=== PATIENT | male | born 1970 | race Two or more races ===

== ENCOUNTER 2017-06-22 16:22 | Inpatient (IN) | payer OTHER ==
[~2017-06-22] VITALS: Ht 175.3 cm; Wt 97.5 kg
[~2017-06-22 16:22] MED LIST: CEPH500 PO; TRAM50 PO
[2017-06-22] MEDS ORDERED: MONT10T (16:49)
[2017-06-22] MEDS ORDERED: HYDR1TAB94 (16:50)
[2017-06-22] MEDS ORDERED: Ventolin/Prove6.7 GM (16:50)
[2017-06-22] MEDS ORDERED: Advair Hfa 230-12 GM (16:50)
[2017-06-22 17:17] LABS: BASOPHILS ABSOLUTE AUTO 0.06 K/mm3 (0.00-0.23); BASOPHILS PERCENT AUTO 1 % (0-2); EOSINOPHILS ABSOLUTE AUTO 0.14 K/mm3 (0.00-0.68); EOSINOPHILS PERCENT AUTO 2 % (0-6); Hematocrit 49.4 % (37.0-53.0); Hemoglobin 16.7 g/dL (13.5-17.5); IMMATURE GRAN ABSOLUTE AUTO 0.02 K/mm3 (0.00-0.10); IMMATURE GRAN PERCENT AUTO 0 % (0-1); LYMPHOCYTES ABSOLUTE AUTO 1.32 K/mm3 (0.84-5.20); LYMPHOCYTES PERCENT AUTO 21 % (21-46); MONOCYTES ABSOLUTE AUTO 0.52 K/mm3 (0.16-1.47); MONOCYTES PERCENT AUTO 8 % (4-13); Mean Corpuscular HGB 30.4 pg (26.0-34.0); Mean Corpuscular HGB Conc 33.8 g/dL (31.5-36.5); Mean Corpuscular Volume 90 fL (80-100); Mean Platelet Volume 9.9 fL (9.1-12.4); NEUTROPHILS ABSOLUTE AUTO 4.32 K/mm3 (1.96-9.15); NEUTROPHILS PERCENT AUTO 68 % (41-73); Platelet Count 227 K/mm3 (150-400); RDW Coefficient Variation 12.5 % (11.7-14.2); RDW Standard Deviation 41.3 fL (35.1-46.3); White Blood Cell Count 6.38 K/mm3 (4.00-11.30)
[2017-06-22 17:34] LABS: Alanine Aminotransfer (ALT/SGP 56 U/L (12-78); Albumin/Globulin Ratio 0.9 (0.8-1.8); Alk Phos 196 U/L (50-136); Anion Gap 6 mmol/L (6-16); Aspartate Aminotrans (AST/SGOT 35 U/L (12-37); Bilirubin, Total 0.5 mg/dL (0.1-1.0); Blood Urea Nitrogen 12 mg/dL (8-24); Bun/Creatinine Ratio 20.9 (12.0-20.0); CO2, Blood 30 mmol/L (21-32); Calcium, Blood 9.2 mg/dL (8.5-10.1); Chloride, Blood 104 mmol/L (98-108); Creatinine, Blood 0.58 mg/dL (0.60-1.20); Globulin, Blood 4.4 g/dL (2.2-4.0); Glomerular Filtration Rate >60 (60-); Glucose, Blood 104 mg/dL (70-99); Potassium, Blood 4.4 mmol/L (3.5-5.5); Sodium, Blood 140 mmol/L (136-145); Total Protein, Blood 8.4 g/dL (6.4-8.2)
[2017-06-22 21:10] LABS: Bilirubin, Urine Neg (Neg); Blood, Urine Neg (Neg); Glucose Qualitative, Urine Neg (Neg); Ketones, Urine Neg (Neg); Leukocyte Esterase, Urine Neg (Neg); Nitrite, Urine Neg (Neg); Protein, Urine Neg (Neg); Urobilinogen, Urine NORM (Normal)
[2017-06-22 21:19] LABS: Appearance, Urine Clear (Clear); Color, Urine Yellow (P-Yellow)
== END 2017-06-23 00:45 | disposition home or self-care (01) | DRG 355 ==
LOC: ER 16:22 → SURS 20:34
PROVIDERS: Emergency Medicine; Surgery
PROC: 0WUF0JZ Supplement Abdominal Wall with Synthetic Substitute, Open Approach (ICD-10-PCS; principal; 2017-06-22 13:00)
DX: K42.0 Umbilical hernia with obstruction, without gangrene (principal); J45.909 Unspecified asthma, uncomplicated; E66.9 Obesity, unspecified; Z68.31 Body mass index [BMI] 31.0-31.9, adult; Z79.899 Other long term (current) drug therapy
CPT/HCPCS: 36415; 74177; 80053; 81003; 83690; 85025; J0330; J0690; J1100; J1170; J1885; J2250; J2405; J2710; J3010; J7030; J7120; Q9967

== ENCOUNTER 2018-09-02 23:00 | Emergency (ER) | payer OTHER ==
[~2018-09-02] VITALS: Ht 175.3 cm; Wt 90.7 kg
[~2018-09-02 23:00] MED LIST changes: +Advair Hfa 230-12 GM; +HYDR1TAB94; +MONT10T; +Ventolin/Prove6.7 GM
[2018-09-02] MEDS ORDERED: Ventolin5 MG/1 ML (23:13)
[2018-09-02 23:47] LABS: BASOPHILS ABSOLUTE AUTO 0.07 K/mm3 (0.00-0.23); BASOPHILS PERCENT AUTO 1 % (0-2); EOSINOPHILS ABSOLUTE AUTO 0.18 K/mm3 (0.00-0.68); EOSINOPHILS PERCENT AUTO 2 % (0-6); Hematocrit 46.5 % (37.0-53.0); IMMATURE GRAN ABSOLUTE AUTO 0.02 K/mm3 (0.00-0.10); IMMATURE GRAN PERCENT AUTO 0 % (0-1); LYMPHOCYTES ABSOLUTE AUTO 2.14 K/mm3 (0.84-5.20); LYMPHOCYTES PERCENT AUTO 27 % (21-46); MONOCYTES ABSOLUTE AUTO 0.55 K/mm3 (0.16-1.47); MONOCYTES PERCENT AUTO 7 % (4-13); Mean Corpuscular HGB 30.9 pg (26.0-34.0); Mean Corpuscular HGB Conc 34.4 g/dL (31.5-36.5); Mean Corpuscular Volume 90 fL (80-100); Mean Platelet Volume 9.6 fL (9.1-12.4); NEUTROPHILS ABSOLUTE AUTO 4.88 K/mm3 (1.96-9.15); NEUTROPHILS PERCENT AUTO 62 % (41-73); Platelet Count 245 K/mm3 (150-400); RDW Coefficient Variation 12.6 % (11.7-14.2); RDW Standard Deviation 41.8 fL (35.1-46.3); Red Blood Cell Count 5.18 M/mm3 (4.30-5.90); White Blood Cell Count 7.84 K/mm3 (4.00-11.30)
[2018-09-03 00:08] LABS: Alanine Aminotransfer (ALT/SGP 42 U/L (12-78); Albumin, Blood 4.2 g/dL (3.4-5.0); Alk Phos 151 U/L (50-136); Anion Gap 11 mmol/L (6-16); Aspartate Aminotrans (AST/SGOT 30 U/L (12-37); Bilirubin, Total 0.6 mg/dL (0.1-1.0); Blood Urea Nitrogen 12 mg/dL (8-24); Bun/Creatinine Ratio 13.1 (12.0-20.0); CO2, Blood 26 mmol/L (21-32); Calcium, Blood 9.2 mg/dL (8.5-10.1); Chloride, Blood 102 mmol/L (98-108); Creatinine, Blood 0.92 mg/dL (0.60-1.20); Globulin, Blood 4.3 g/dL (2.2-4.0); Glomerular Filtration Rate >60 (60-); Glucose, Blood 139 mg/dL (70-99); Potassium, Blood 2.9 mmol/L (3.5-5.5); Sodium, Blood 139 mmol/L (136-145); Total Protein, Blood 8.5 g/dL (6.4-8.2); Troponin I <0.015 ng/mL (0.000-0.040)
[2018-09-03] MEDS ORDERED: PROAIR RESPICL90 MCG INH (00:42)
[2018-09-03] MEDS ORDERED: Prednisone20 MG PO (00:42)
== END 2018-09-03 00:58 | disposition home or self-care (01) ==
LOC: ER 23:00
PROVIDERS: Emergency Medicine
DX: J45.901 Unspecified asthma with (acute) exacerbation (principal); Z79.51 Long term (current) use of inhaled steroids
CPT/HCPCS: 36415; 71046; 80053; 84484; 85025; 93005; 93010; 94640; 99285-25; J7512

== ENCOUNTER 2022-06-13 06:44 | Day surgery (SDC) | payer OTHER ==
[~2022-06-13] VITALS: Ht 170.2 cm; Wt 113.7 kg
[2022-06-13] VITALS (11 sets, daily range): BP systolic 122–152; BP diastolic 75–102
[~2022-06-13 06:44] MED LIST changes: +Adipex-P37.5 MG PO; +HYDR1TAB94 PO; +PROAIR RESPICL90 MCG INH; +Prednisone20 MG PO; +Ventolin5 MG/1 ML
--- NOTE | 2022-06-13 08:04 | NUR ---
Whellchaired into Day Surgery History, Chart, Medications and Allergies reviewed before start of procedure. Pre-Op teaching done. Pt verbalizes understanding.
--- NOTE | 2022-06-13 11:35 | NUR ---
ARRIVAL TO UNIT PT ARRIVED TO UNIT FROM PACU VIA HOSPITAL BED. S/P L TKA, POD 0. PT AOX4. REPORTS THAT PAIN IS TOLERABLE, PLAN IS TO MEDICATE PER EMAR. RECOVERING FROM SPINAL ANESTHESIA, ABLE TO WIGGLE TOES, MOVE LOWER EXTREMITIES, REPORTS MILD NUMBNESS & TINGLING. TOLERATING PO INTAKE, NO N/V. AQUACEL DRESSING, C/D/I, & NIYA WRAP, NO SHADOWING. 1L VIA NC CURRENTLY, PLAN TO RETURN TO BASELINE RM AIR DURING THE DAY (BASELINE WEARS O2 HS, PRN). IVF INFUSING. PT STATES GOAL IS TO POSSIBLE DC TODAY.
[2022-06-13] MEDS ORDERED: ASPI81CH PO (14:48)
[2022-06-13] MEDS ORDERED: Percocet 5-3251 EACH PO (14:48)
--- NOTE | 2022-06-13 15:26 | NUR ---
DISCHARGE SUMMARY PT S/P L TKA, POD 0. VSS, VOIDING. PAIN TOLERABLE W/ PRESCRIBED MEDICATION. TOLERATING PO INTAKE, NO N/V. PT EVAL COMPLETED THIS AFTERNOON, MET DC CRITERIA. PRESENT AT BEDSIDE DURING EVAL. UP W/ SBA FWW GB, CALLS PRN FOR ASSIST. AQUACEL DRESSING, C/D/I W/ NIYA WRAP. IV RMVD PRIOR TO DC. COOLING DEVICE & AQUACEL DRESSINGS PROVIDED FOR HOME USE. PT & SPOUSE AGREE W/ DC. PT TRANSFERRED TO VEHICLE VIA WHEELCHAIR.
== END 2022-06-13 15:50 | disposition home or self-care (01) ==
LOC: ORSCMMR 06:44 → SURS 11:09 → ORD 12:30 → ORSCMMR 12:30
PROVIDERS: Orthopaedic Surgery
PROC: 0SRD0JA Replacement of Left Knee Joint with Synthetic Substitute, Uncemented, Open Approach (ICD-10-PCS; principal; 2022-06-13 08:15)
DX: M17.12 Unilateral primary osteoarthritis, left knee (principal); E66.9 Obesity, unspecified; Z68.38 Body mass index [BMI] 38.0-38.9, adult
CPT/HCPCS: 73560-LT; 97110; 97116; 97162; 97530; A9270; C1776; J0171; J0690; J0735; J1100; J1885; J2250; J2405; J2704; J2765; J2795; J3010; J3370; J7120

== ENCOUNTER 2022-08-01 08:26 | Day surgery (SDC) | payer OTHER ==
[2022-08-01] VITALS (13 sets, daily range): BP systolic 79–168; BP diastolic 49–112
[~2022-08-01] VITALS: Ht 172.7 cm; Wt 119.3 kg
[~2022-08-01 08:26] MED LIST changes: +ASPI81CH PO; +Percocet 5-3251 EACH PO
--- NOTE | 2022-08-01 09:49 | NUR ---
Wheelchaired into Day Surgery. History, Chart, Medications and Allergies reviewed before start of procedure.Pre-Op teaching done. Pt verbalizes understanding.
--- NOTE | 2022-08-01 14:41 | NUR ---
ARRIVED TO UNIT PT ARRIVED TO UNIT FROM PACU. PT DAUGHTER AT BEDSIDE. PT HAS JENNY HOSE AND POLAR CAM IN PLACE. TOLERATING ICE WATER AND JELLO AT THIS TIME. DENIES PAIN. ABLE TO WIGGLE TOES BUT ENDORSES NUMBNESS AROUND KNEE. CANNOT LIFT LEG AT THIS TIME. CALL LIGHT IN REACH. EDUCATED PT ON CALLING ONCE PAIN BEGINS.
--- NOTE | 2022-08-01 16:00 | NUR ---
PATIENT REQUESTING TO BE DISCHARGED. THIS RN EXPLAINED TO PATIENT THAT HE NEEDED TO WORK WITH PHYSICAL THERAPY AND CLEAR THERAPY PRIOR TO DISCHARGE, AND THAT HE NEEDED TO VOID POST-OPERATIVELY. PATIENT APPEARED UPSET AND STATED "I NEED TO SPEAK WITH MR JOSEPH." THIS RN NOTIFIED SUPERVISOR PLASMA AND DR JOSEPH, DR JOSEPH STATED IF PATIENT CAN AMBULATE WITH NURSING STAFFING, THEN HE MAY DISCHARGE. UPDATED PATIENT REGARDING THIS CONVERSATION. PLAN TO AMBULATE.
--- NOTE | 2022-08-01 16:30 | NUR ---
SPOKE WITH PHYSICAL THERAPIST. LEAD PT MICHOACANO AGREED TO COME AND EVALUATE PATIENT PRIOR TO PATIENT LEAVING THIS EVENING.
[2022-08-01] MEDS ORDERED: ASPI81CH PO (16:43)
--- NOTE | 2022-08-01 17:37 | NUR ---
DISCHARGE PATIENT CLEARED THERAPY SESSION. EATING, DRINKING, & VOIDING W/O DIFFICULTY. REPORTS NO PAIN AT THIS TIME. AMBULATED TO BATHROOM SBA W/ FWW & GB, DRESSED INDEPENDENTLY. DISCUSSED DISCHARGE INSTRUCTIONS & SENT WITH PATIENT. SENT DRESSINGS, SCRIPTS, & POLAR PACK WITH PATIENT. ESCORTED OUT VIA W/C.
== END 2022-08-01 17:29 | disposition home or self-care (01) ==
LOC: ORSCMMR 08:26 → ORD 10:00 → ORSCMMR 10:00 → ORD 10:45 → SURS 14:39 → ORSCMMR 17:29
PROVIDERS: Orthopaedic Surgery
PROC: 0SRC0JA Replacement of Right Knee Joint with Synthetic Substitute, Uncemented, Open Approach (ICD-10-PCS; principal; 2022-08-01 10:00)
DX: M17.11 Unilateral primary osteoarthritis, right knee (principal); E66.9 Obesity, unspecified; Z68.38 Body mass index [BMI] 38.0-38.9, adult; I10 Essential (primary) hypertension
CPT/HCPCS: 73560-RT; 97110; 97161; 97530; A9270; C1776; J0171; J0690; J0735; J1100; J1885; J2250; J2370; J2405; J2704; J2795; J3010; J3370; J7120

== ENCOUNTER 2025-01-20 15:03 | Inpatient (IN) | payer SELFPAY ==
[~2025-01-20] VITALS: Ht 172.7 cm; Wt 141.2 kg
[2025-01-20] VITALS (16 sets, daily range): BP systolic 69–117; BP diastolic 55–78
[2025-01-20 15:29] LABS: BASOPHILS ABSOLUTE AUTO 0.05 K/mm3 (0.00-0.23); BASOPHILS PERCENT AUTO 0 % (0-2); EOSINOPHILS ABSOLUTE AUTO 0.01 K/mm3 (0.00-0.68); EOSINOPHILS PERCENT AUTO 0 % (0-6); Hematocrit 37.6 % (37.0-53.0); Hemoglobin 9.1 g/dL (13.5-17.5); IMMATURE GRAN ABSOLUTE AUTO 0.09 K/mm3 (0.00-0.10); IMMATURE GRAN PERCENT AUTO 1 % (0-1); LYMPHOCYTES ABSOLUTE AUTO 1.81 K/mm3 (0.84-5.20); LYMPHOCYTES PERCENT AUTO 10 % (21-46); MONOCYTES ABSOLUTE AUTO 1.73 K/mm3 (0.16-1.47); MONOCYTES PERCENT AUTO 9 % (4-13); Mean Corpuscular HGB Conc 24.2 g/dL (31.5-36.5); Mean Corpuscular Volume 90 fL (80-100); NEUTROPHILS ABSOLUTE AUTO 14.95 K/mm3 (1.96-9.15); NEUTROPHILS PERCENT AUTO 80 % (41-73); NRBC ABSOLUTE 0.25 K/mm3 (0.00-0.02); NRBC Auto 1.3 /100 WBC (0.0-0.2); Platelet Count 428 K/mm3 (150-400); RDW Coefficient Variation 19.5 % (11.7-14.2); RDW Standard Deviation 63.3 fL (35.1-46.3)
[2025-01-20] MEDS ORDERED: NS 1,000 ML IV ONE (15:32)
[2025-01-20] MEDS ORDERED: NS 250 ML IV ONE (15:35)
[2025-01-20 15:37] LABS: pH Blood Venous 7.06 (7.34-7.37)
[2025-01-20 15:59] LABS: CORONAVIRUS COVID-19 AG Negative (NEGATIVE)
[2025-01-20] MEDS ORDERED: CefTRIAXone Sodium 1,000 MG in NS 50 ML IV ONE (16:15)
[2025-01-20 16:19] LABS: Thyroid Stimulating Hormone 2.090 uIU/mL (0.360-4.800)
[2025-01-20 16:20] LABS: Alanine Aminotransfer (ALT/SGP 232 U/L (12-78); Albumin, Blood 3.1 g/dL (3.4-5.0); Albumin/Globulin Ratio 0.6 (0.8-1.8); Anion Gap 14 mmol/L (3-11); Aspartate Aminotrans (AST/SGOT 482 U/L (12-37); Bilirubin, Total 1.9 mg/dL (0.1-1.0); Blood Urea Nitrogen 29 mg/dL (8-24); CO2, Blood 23 mmol/L (21-32); Calcium, Blood 8.0 mg/dL (8.5-10.1); Chloride, Blood 101 mmol/L (98-108); Creatinine, Blood 2.13 mg/dL (0.60-1.20); Globulin, Blood 5.4 g/dL (2.2-4.0); Glucose, Blood 94 mg/dL (70-99); Potassium, Blood 5.1 mmol/L (3.5-5.5); Sodium, Blood 133 mmol/L (136-145); Total Protein, Blood 8.5 g/dL (6.4-8.2)
[2025-01-20 16:34] LABS: Calcium, Ionized (POC) 1.06 mmol/L (1.10-1.46); Chloride (POC) 101 mmol/L (98-108); Creatinine (POC) 2.2 mg/dL (0.8-1.3); Glucose (ISTAT POC) 90 mg/dL (70-99); Hematocrit (POC) 39.0 % (41.0-53.0); Hemoglobin (POC) 13.3 g/dL (13.5-17.5); Potassium (POC) 5.3 mmol/L (3.5-5.5); Sodium (POC) 137 mmol/L (135-148); Total CO2 (POC) 23 mmol/L (21-32)
[2025-01-20 16:49] LABS: Source, Urine Foley catheter
[2025-01-20 17:05] LABS: Color, Urine Amber (P-Yellow); Glucose Qualitative, Urine Neg (Neg); Ketones, Urine Neg (Neg); Leukocyte Esterase, Urine 1+ (Neg); Protein, Urine 3+ (Neg); Specific Gravity, Urine 1.025 (1.003-1.022); Urobilinogen, Urine 4+ (Normal)
[2025-01-20 17:15] LABS: Bilirubin, Urine 2+ (Neg)
[2025-01-20 18:52] LABS: pH Blood Arterial 7.43 (7.35-7.45)
[2025-01-20] MEDS ORDERED: FLU VACC TS2025-26(6MOS UP)/PF 45 MCG/0.5 ML SYRINGE IM SCH (19:00)
[2025-01-20] MEDS ORDERED: Lactulose 200 GM/300 ML Enema 300ML BTL PR SCH (19:00)
[2025-01-20] MEDS ORDERED: Ondansetron HCl 2 MG / ML 2ML Vial IV PRN (19:00)
[2025-01-20] MEDS ORDERED: Cetylpyridinium Chloride 1 EA MISC MT SCH (19:00)
[2025-01-20] MEDS ORDERED: Piperacillin/Tazobactam Sod 3.375 GM in NS 100 ML IV ONE (19:10)
--- NOTE | 2025-01-20 20:00 | NUR ---
ASSUMPTION OF CARE: REPORT RECEIVED FROM DIVYA Gongora ED RN, AT ABOUT 1930. THIS RN TO ASSUME CARE OF PT ONCE PT ARRIVES TO ICU RM 10. PT ARRIVED TO ICU RM 10 AT 8. PT TRANSPORTED VIA ED GURNEY, ACCOMPANIED BY 2 RNS AND RT. PT IS SEDATED/INTUBATED. PT NONRESPONSIVE AND MAKING NO INTENTIONAL MOVEMENTS. PT TRANSFERRED TO ICU BED. PT PUPILS SLUGGISH BUT RESPONSIVE TO LIGHT. PT NOT FOLLOWING ANY COMMANDS. TEMP 98.8, BEAR HUGGER PLACED SHORTLY AFTER ARRIVAL. PT OBSERVED TO HAVE COPIOUS AMOUNTS OF THICK/WHITE SECRETIONS, REQUIRING FREQUENT SUCTIONING. PT OBSERVED TO GRIMACE SLIGHTLY WHEN BEING SUCTIONED. NO GAG OR SWALLOW REFLEX. SBP SOFT BUT STABLE, LEVOPHED GTT ON STANDBY, MAPS>65. HR 50S-60S, IRREGULAR. LUNGS SLIGHTLY COARSE W/ EXPIRATORY WHEEZES AUSCULTATED IN UPPER BILAT LOBES. ABD MODERATELY DISTENDED, BT HYPOACTIVE X4. ABD NOTED TO HAVE REDDENED AREA-AREA MARKED TO MOINITOR CHANGES. BATISTA TEMP, PLACED IN ED, REMAINS PATENT-DRAINING CONCENTRATED URINE TO GRAVITY. PT TURNED AND SKIN INSPECTED BY THIS RN AND TEODORO HAINES. PT FOUND TO HAVE WHAT APPEARS TO BE MOISTURE-RELATED EXCORIATION WOUNDS TO SCROTUM. PHOTOS TAKEN AND PLACED IN CHART. RECTAL TUBE PLACED IN PREPARATION FOR ENEMAS (ORDERED BY HOSPITALIST RYLIE). PT HAS CENTRAL LINE TO R SUBCLAVIAN AND TWO PIV TO RHAND AND LAC. PROPOFOL INFUSING AT 10MCG/KG/MIN. CARE CONTINUES.
[2025-01-20] MEDS ORDERED: Phenylephrine HCl 100 MCG/ML-NS 10MLSYR (1MG/10ML) IV ONE (20:58)
[2025-01-20] MEDS ORDERED: Ketamine HCl 100 MG / ML 5ML Vial IM ONE (20:58)
[2025-01-20] MEDS ORDERED: Rocuronium Bromide 10 MG/ML 5ML Injection IV ONE (20:58)
[2025-01-20 21:23] LABS: Prothrombin Time Results 17.9 Sec (9.7-11.5)
[2025-01-20 21:27] LABS: U Amphetamine Screen Not Detected; U Barbiturate Screen Not Detected; U Benzodiazapine Screen Not Detected; U Buprenorphine Screen Not Detected; U Cannabinoids Screen Not Detected; U Cocaine Screen Not Detected; U Methadone Screen Not Detected; U Methamphetamine Screen Not Detected; U Opiates Screen DETECTED; U Oxycodone Screen Not Detected; U Phencyclidine Screen Not Detected
[2025-01-20 22:44] LABS: Ferritin, Serum 24.0 ng/mL (26-388); Magnesium, Blood 2.0 mg/dL (1.6-2.4); Total Iron Binding Capacity 357.0 ug/dL (250-450)
[2025-01-21] VITALS (92 sets, daily range): BP systolic 10–120; BP diastolic 50–93
[2025-01-21] MEDS ORDERED: Hydrogen Peroxide 1.5 % Solution MT SCH
[2025-01-21] MEDS ORDERED: Piperacillin/Tazobactam Sod 3.375 GM in NS 100 ML IV SCH (01:00)
[2025-01-21 04:34] LABS: BASOPHILS ABSOLUTE AUTO 0.06 K/mm3 (0.00-0.23); BASOPHILS PERCENT AUTO 0 % (0-2); EOSINOPHILS ABSOLUTE AUTO 0.05 K/mm3 (0.00-0.68); EOSINOPHILS PERCENT AUTO 0 % (0-6); Hematocrit 29.4 % (37.0-53.0); Hemoglobin 7.8 g/dL (13.5-17.5); IMMATURE GRAN ABSOLUTE AUTO 0.07 K/mm3 (0.00-0.10); IMMATURE GRAN PERCENT AUTO 0 % (0-1); LYMPHOCYTES ABSOLUTE AUTO 1.63 K/mm3 (0.84-5.20); LYMPHOCYTES PERCENT AUTO 9 % (21-46); MONOCYTES ABSOLUTE AUTO 1.01 K/mm3 (0.16-1.47); MONOCYTES PERCENT AUTO 6 % (4-13); Mean Corpuscular HGB Conc 26.5 g/dL (31.5-36.5); NEUTROPHILS ABSOLUTE AUTO 15.34 K/mm3 (1.96-9.15); NEUTROPHILS PERCENT AUTO 84 % (41-73); NRBC ABSOLUTE 0.10 K/mm3 (0.00-0.02); NRBC Auto 0.6 /100 WBC (0.0-0.2); Platelet Count 346 K/mm3 (150-400); RDW Coefficient Variation 19.0 % (11.7-14.2); RDW Standard Deviation 54.7 fL (35.1-46.3)
[2025-01-21 04:37] LABS: pH Blood Venous 7.37 (7.34-7.37)
[2025-01-21 04:39] LABS: Mean Corpuscular Volume 81 fL (80-100)
[2025-01-21 05:03] LABS: Magnesium, Blood 1.8 mg/dL (1.6-2.4)
[2025-01-21 05:10] LABS: Alanine Aminotransfer (ALT/SGP 533.0 U/L (12-78); Albumin, Blood 2.5 g/dL (3.4-5.0); Albumin/Globulin Ratio 0.6 (0.8-1.8); Anion Gap 11.0 mmol/L (3-11); Bilirubin, Total 1.3 mg/dL (0.1-1.0); Blood Urea Nitrogen 32.0 mg/dL (8-24); CO2, Blood 27.0 mmol/L (21-32); Calcium, Blood 7.7 mg/dL (8.5-10.1); Chloride, Blood 103.0 mmol/L (98-108); Creatinine, Blood 1.62 mg/dL (0.60-1.20); Globulin, Blood 4.2 g/dL (2.2-4.0); Glucose, Blood 90.0 mg/dL (70-99); Potassium, Blood 3.8 mmol/L (3.5-5.5); Sodium, Blood 137.0 mmol/L (136-145); Total Protein, Blood 6.7 g/dL (6.4-8.2)
[2025-01-21 05:11] LABS: Aspartate Aminotrans (AST/SGOT 1160.0 U/L (12-37)
--- NOTE | 2025-01-21 06:17 | NUR ---
SHIFT SUMMARY: PT REMAINS INTUBATED/SEDATED. PT INTERMITTENTLY OPENS EYES TO VERBAL STIMULI. AFEBRILE. PT GRIMACES W/ORAL SUCTIONING AND REPOSITIONING. VENT SETTINGS AC/PC RATE 18/ PRESSURE 30/PEEP 8/ FIO2 45%. SBP STABLE AT THIS TIME. PT ON LEVOPHED GTT TO MAINTAIN MAP>65. SEE FLOWSHEET FOR TITRATIONS. HR 50S-70S, SINUS. PT ABD DISTENDED, FIRM, W/REDDENED AREA (WARM TO TOUCH). BT HYPOACTIVE X4. OG TUBE IN PLACE, CONNECTED TO LIS. RECTAL TUBE DRAINING BROWN LIQUID STOOL, POST ENEMA. TEMP BATISTA IN PLACE, PATENT, DRAINING TO GRAVITY. PT HAS SCROTUM EXCORIATION, PHOTOS TAKEN AND PLACED IN CHART. PIV TO R HAND AND LAC. CENTRAL LINE IN R SUBCLAVIAN. PROPOFOL INFUSING AT 30MCG/KG/MIN FOR VENT COMPLIANCE. CARE CONTINUES. THIS RN TO REPORT TO ONCOMING RN.
--- NOTE | 2025-01-21 08:00 | NUR ---
ASSUMED CARE OF PATIENT AT 0700 PATIENT WAS RASS -3 UPON ASSESSMENT. PUPILS SIZE1 AND BRISK BILAT. PATIENT PROPOFOL AT 30MCG AND DECREASED IT TO 20MCG. HE WAS ABLE TO BE MORE INTERACTIVE WITH STAFF SQUEEZING HANDS APPROPRIATELY TO COMMANDS. LEVOPHED ON 2MCG/MIN FOR MAP GOAL 65 OR GREATER. PATIENT HAS CENTRAL LINE TO RIGHT SUBCLAV. AND TWO PIV IV'S BILAT LOWER EXTREMETIES FLUSH AND DRAW BLOOD BACK EASILY. PATIENT HAS CLEAR BUT DIMINSHED LUNG SOUNDS BILAT. PATIENT HAS ABD DISTENDED AND RED MARKING ON ABD, EDGES MARKED OFF. ABD IS TAUGHT WHEN PALPATED. GOOD BOWEL SOUNDS PRESENT X4 QUADRANTS. PT HAS RECTAL TUBE IN PLACE WITH WATERY STOOL COMING OUT OF IT CURRENTLY. BATISTA IN PLACE WITH GOOD CLEAR YELLOW URINE OUT. HE DID GET LASIX THIS AM. RESTRAINTS ON BILAT WRIST TO MAINTAIN PATENCY OF ETT, HE DOES REACH WHEN STARTLED. WILL NOTIFY PT BEFORE PRECURES WILL ENCURE. WILL CONTINUE CARE DIRECTED.
[2025-01-21] MEDS ORDERED: FentaNYL Citrate 50 MCG/ML 2 ML Injection IV PRN (08:45)
[2025-01-21] MEDS ORDERED: Enoxaparin 30 MG/0.3 ML SYR SC SCH (09:00)
[2025-01-21] MEDS ORDERED: Pantoprazole Sodium 40 MG Injection IV SCH (09:00)
[2025-01-21] MEDS ORDERED: Acetylcysteine (Pharmacy Consult) IV PRN (12:05)
[2025-01-21] MEDS ORDERED: Magnesium Hydroxide Conc 10 ML UDC PT PRN (16:00)
[2025-01-21] MEDS ORDERED: Docusate Sodium Liquid 100 MG UDC PT PRN (16:00)
--- NOTE | 2025-01-21 18:14 | NUR ---
END OF SHIFT REPORT JANENE HAS HAD A GOOD DAY, HE WAS ABLE TO WAKE UP EASILY WITH PROPOFOL AT 20MCG/MIN ALL DAY KEEPING HIS RASS AT -2, -1.. HE HAS REMAINED IN THE RESTRAINTS HOWEVER. HE HAS HAD CHANGES TO HIS VENTILATOR NOW AC VC 18/450/8/50%. HE HAS NEEDED FENTANYL TO TOLERATE THE UNCOMFORTABLENESS OF THE VENT. HE HAS HAD LACTULOSE TODAY AND HAS HAD A GOOD BM THIS EVENING. HIS LEVOPHED HAS BEEN AT 2MCG/MIN ALL DAY KEEPING HIS MAP GOAL GREATER THAN 65. RECTAL TUBE STILL IN PLACE. BATISTA STILL IN PLACE WITH CLEAR YELLOW URINE OUT. HE HAS HAD OVER 4L OFF TODAY. HE IS FOLLOWING COMMANDS APPROPRIATLY. FAMILY HAS BEEN AT BEDSIDE ALL DAY. NO ACUTE CHANGES AT THIS TIME. WILL GIVE REPORT TO NEXT SHIFT.
[2025-01-22] VITALS (88 sets, daily range): BP systolic 94–127; BP diastolic 41–93
[2025-01-22 04:21] LABS: Alanine Aminotransfer (ALT/SGP 409.0 U/L (12-78); Albumin, Blood 2.2 g/dL (3.4-5.0); Albumin/Globulin Ratio 0.5 (0.8-1.8); Anion Gap 10.0 mmol/L (3-11); Aspartate Aminotrans (AST/SGOT 570.0 U/L (12-37); Bilirubin, Direct 1.2 mg/dL (0.0-0.3); Bilirubin, Indirect 0.4 mg/dL (0.1-0.7); Bilirubin, Total 1.6 mg/dL (0.1-1.0); Blood Urea Nitrogen 22.0 mg/dL (8-24); CO2, Blood 32.0 mmol/L (21-32); Calcium, Blood 7.7 mg/dL (8.5-10.1); Chloride, Blood 102.0 mmol/L (98-108); Creatinine, Blood 0.76 mg/dL (0.60-1.20); Globulin, Blood 4.5 g/dL (2.2-4.0); Glucose, Blood 105.0 mg/dL (70-99); Magnesium, Blood 1.6 mg/dL (1.6-2.4); Phosphorus, Blood 2.1 mg/dL (2.5-4.9); Potassium, Blood 2.7 mmol/L (3.5-5.5); Sodium, Blood 141.0 mmol/L (136-145); Total Protein, Blood 6.7 g/dL (6.4-8.2)
[2025-01-22 04:22] LABS: BASOPHILS ABSOLUTE AUTO 0.06 K/mm3 (0.00-0.23); BASOPHILS PERCENT AUTO 1 % (0-2); EOSINOPHILS ABSOLUTE AUTO 0.11 K/mm3 (0.00-0.68); EOSINOPHILS PERCENT AUTO 1 % (0-6); Hematocrit 30.4 % (37.0-53.0); Hemoglobin 8.3 g/dL (13.5-17.5); IMMATURE GRAN ABSOLUTE AUTO 0.05 K/mm3 (0.00-0.10); IMMATURE GRAN PERCENT AUTO 0 % (0-1); LYMPHOCYTES ABSOLUTE AUTO 1.39 K/mm3 (0.84-5.20); LYMPHOCYTES PERCENT AUTO 11 % (21-46); MONOCYTES ABSOLUTE AUTO 0.76 K/mm3 (0.16-1.47); MONOCYTES PERCENT AUTO 6 % (4-13); Mean Corpuscular HGB Conc 27.3 g/dL (31.5-36.5); Mean Corpuscular Volume 80 fL (80-100); NEUTROPHILS ABSOLUTE AUTO 9.83 K/mm3 (1.96-9.15); NEUTROPHILS PERCENT AUTO 81 % (41-73); NRBC ABSOLUTE 0.03 K/mm3 (0.00-0.02); NRBC Auto 0.2 /100 WBC (0.0-0.2); Platelet Count 345 K/mm3 (150-400); RDW Coefficient Variation 19.3 % (11.7-14.2); RDW Standard Deviation 54.9 fL (35.1-46.3)
--- NOTE | 2025-01-22 06:11 | NUR ---
SHIFT SUMMERY PT REMAINS INTUBATED AND SEDATED ON PROPOFOL, SEE [facility]. PT IS ON LEVOPHED TO MAINTAIN MAP>65. BATISTA CATHETER AND RECTAL TUBE BOTH INTACT PATENT AND DRAINING TO GRAVITY. PT HAS BEEN SR W/OCCASIONAL SHORT RUNS OF BIGEMINY. AFEBRILE. OXYGEN SAT >95%. NO ACUTE CHANGES OVERNIGHT.
--- NOTE | 2025-01-22 07:30 | NUR ---
ASSUMED CARE PT ON VENTILATOR AC 16, TV 450, PEEP 9, FIO2 45%. PT SEDATED ON 40 MICS OF PROPOFOL. PT ON 4 MICS OF LEVOPHED. WILL TITRATED PROPOFOL DOWN FOR SEDATION VACATION. RESTRAINTS ON FOR PATIENTS PROTECTION. F/C PATENT. ABD DISTENDED WITH LARGE MARKED REDDENED AREA ON IT. HYPO BS. PT DOES WITHDRAWN FROM PAIN IN ALL EXTREMITIES. POTASIUM AND SODIUM PHOSPEROUS BEING REPLACED.
[2025-01-22] MEDS ORDERED: Magnesium Sulf 2 GM/Water 50ML 50 ML IV ONE (09:55)
[2025-01-22 09:58] LABS: pH Blood Venous 7.43 (7.34-7.37)
--- NOTE | 2025-01-22 10:00 | NUR ---
PROPOFOL OFF AND LEVOPHED WEANED OFF. PT AWAKE AND FOLLOWING COMMANDS BUT GOES RIGHT BACK TO SLEEP. AT BEDSIDE. TIDAL VOLUMES OF 200-275. PT WILL REMAIN ON SBT AND SEDATION VACATION TO SEE IF HIS TIDAL VOLUMES IMPROVE.
--- NOTE | 2025-01-22 14:00 | NUR ---
PT TIRING OUT.PT PUT BACK ON A 16, TV 456, PEEP 8, FIO2 35%.PROPOFOL RESTARTED AT 10 MICS. PT C/O ABD PAIN WHEN COUGHING. ABD REMAINS THE SAME SIZE. PT ALERT AND FOLLOWING COMMANDS.
[2025-01-22] MEDS ORDERED: Potassium Phos/Sodium Phos 250 MG PACK PO ONE (15:05)
[2025-01-22] MEDS ORDERED: Potassium Chl 20MEQ/Water100ML 100 ML IV STA (15:16)
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
--- NOTE | 2025-01-22 17:46 | NUR ---
END OF SHIFT PT AWAKE AND FOLLOWING COMMANDS. PT ABLE TO MOVE ALL EXTREMITIES AND RAISE HEAD AND COUGH ON COMMAND. PT UNABLE TO TAKE DEEP BREATHSE AND VOLUMES REMAIN 200-300. AFTER ABOUT 5 HOURS PT RESPIRATIONS INCREASED AND O2 SATURATION STARTED TO GO DOWN. PT SWITCHD BACK TO AC 16, TV 45-, PEEP 8, AND FI02 35%. AT BESIDE AND ASKING A LOT OF INTELLIGENT QUESTIONS.PROPOFOL RESTARTED AT 10 MICS AND INCREASED TO 15 MICS DUE TO PT TALKING WITH FAMILY AT BEDSIDE AND RESPIRATIONS INCREASING. LEVOPHED WEANED OFF. F/C AND FECAL MANAGEMENT SYSTEM PATENT.REPOSITIONED Q 2 HOUR. RED RASH ON BELLY FADING. ABD LOOKS A LITTLE SMALLER AND FEELS A LITTLE SOFTER. LACULOSE D/C.
[2025-01-23] VITALS (40 sets, daily range): BP systolic 99–132; BP diastolic 57–86
[2025-01-23 04:23] LABS: Hematocrit 27.8 % (37.0-53.0); Hemoglobin 7.4 g/dL (13.5-17.5); Mean Corpuscular HGB Conc 26.6 g/dL (31.5-36.5); Mean Corpuscular Volume 81 fL (80-100); NRBC ABSOLUTE 0.03 K/mm3 (0.00-0.02); NRBC Auto 0.3 /100 WBC (0.0-0.2); Platelet Count 296 K/mm3 (150-400); RDW Coefficient Variation 19.6 % (11.7-14.2); RDW Standard Deviation 56.6 fL (35.1-46.3)
[2025-01-23 04:41] LABS: Anion Gap 7.0 mmol/L (3-11); Blood Urea Nitrogen 15.0 mg/dL (8-24); CO2, Blood 34.0 mmol/L (21-32); Calcium, Blood 7.6 mg/dL (8.5-10.1); Chloride, Blood 103.0 mmol/L (98-108); Creatinine, Blood 0.57 mg/dL (0.60-1.20); Glucose, Blood 108.0 mg/dL (70-99); Phosphorus, Blood 1.9 mg/dL (2.5-4.9); Potassium, Blood 3.4 mmol/L (3.5-5.5); Sodium, Blood 141.0 mmol/L (136-145)
--- NOTE | 2025-01-23 05:27 | NUR ---
SHIFT SUMMERY PT REMAINS INTUBATED VIA ETT. HE HAS BEEN LESS COMPLIANT W/VENT TONIGHT VS THE NIGHT BEFORE, SEDATION PER EMAR; SEE [facility]. HE HAS BEEN SR ON THE [employer] ADMINISTRATOR, BP WNL, NO LONGER NEEDING PRESSORS SINCE YESTERDAY. BATISTA CATHETER AND RECTAL TUBE ARE INTACT PATENT AND DRAINING TO GRAVTIY. NO ACUTE CHANGES OVERNIGHT
[2025-01-23] MEDS ORDERED: Potassium Phosphate Dibasic 30 MM in Dextrose 5% 500 ML IV ONE (06:00)
--- NOTE | 2025-01-23 07:15 | NUR ---
received report from night rn.pt sedated and comfortable on 40 mics propofol. will titrated propofol down in hopes of sbt later. pt alert and following commands. f/c and fecal management system patent. abd distended and and less red than yesterday. distention remains in markings.
--- NOTE | 2025-01-23 08:45 | NUR ---
PT ALERT AND ORIENTED X 3. SBT STARTED. PROPOFOL OFF.
--- NOTE | 2025-01-23 10:00 | NUR ---
DR. CALI AT BEDSIDE. UPDATED PATIENT ON IMPROVING CONDITIONS. SBT CONTINUED. PEEP AT 8, FIO2 35%. PT PUT IN SEATED POSITION.
--- NOTE | 2025-01-23 10:04 | NUR ---
PALLIATIVE CARE CONSULT: CONSULT RECEIVED FOR RENAL, NEW DIAGNOSIS, INFECTION. REVIEWED MEDICAL RECORD. NO POLST OR AD FOUND ON FILE OR WITH [facility]. PT INTUBATED AT THIS TIME.
--- NOTE | 2025-01-23 11:02 | NUR ---
CXRAY DONE. PT TOLERATED WELL.
[2025-01-23] MEDS ORDERED: Furosemide 10 MG / ML 2ML Vial IV ONE (15:20)
--- NOTE | 2025-01-23 16:41 | NUR ---
END OF SHIFT PT HAS BEEN ON SEDATION VACATION AND ON SBT SINCE 9AM THIS DAY. PT ALERT AND ORIENTED X 3. RESTRAINTS ON FOR PATIENT'S PROTECTION. ABD LESS RED THAN YESTERDAY.PROPOFOL HAS BEEN OFF SINCE 9AM. PT IS CURRENTLY ON PRESSURE SUPPORT OF . TV 450. FIO2 35%,F/C AND RECTAL MANAGEMENT SYSTEM PATENT. 0NE TIME DOSE OF LASIX 20MG GIVEN. REPEAT K+ LEVEL IS 3.4.
[2025-01-23] MEDS ORDERED: Potassium Phosphate Dibasic 30 MM in Dextrose 5% 500 ML IV STA (18:16)
--- NOTE | 2025-01-23 19:00 | NUR ---
ASSUMPTION OF CARE CARE OF PT ASSUMED FOLLOWING BEDSIDE SHIFT REPORT FROM DAY RN. PT LYING IN BED IN RESTRAINTS ON PRESSURE SUPPORT SINCE 0900 WITH FAMILY IN ROOM. PT IN NO APPARENT DISTRESS. PT TEMP 99.3 F VIA CORE AND 97.9 F VIA TEMP PROBE. PT ADMITS TO PAIN IN RIGHT HIP AND THROAT- WILL TREAT. SINUS RHYTHM IN THE 70'S WITH STABLE BP. NO CHEST PAIN. ETT IS 7.5 AND 23.0CM AT NARES. SMALL SECRETIONS ON DEEP SUCTIONING. SMALL ORAL SECRETIONS WELL. NO SOB. PT WAS GIVEN A DOSE OF LASIX EARLIER TODAY. PLAN IS TO SWITCH TO ACVC SETTINGS AT 16/450/8.0/35% FOR THE EVENING AND TO RESTART PROPOFOL IF NEEDED. AB IS HYPOACTIVE THROUGHOUT AND DISTENDED. NO AB PAIN, N/V. NG TUBE IN PLACE WITH VITAL PROTIEN TB AT 35ML/HR WHICH IS GOAL. TOLERATING WELL. RECTAL TUBE IN PLACE WITH MINIMAL BROWN OUTPUT. WILL REMOVE TONIGHT, MOST LIKELY. BATISTA IN PLACE DRAINING ТАТЬЯНА URINE TO GRAVITY. SCDS IN PLACE. RIGHT SUBCLAVIAN IV'S FLUSH AND DRAW AND LEFT AC PIV FLUSHES WELL. WILL REVIEW AND CONTINUE PLAN OF CARE.
[2025-01-23] MEDS ORDERED: Protein Supplement 30 ML UD PO SCH (21:00)
--- NOTE | 2025-01-23 22:36 | NUR ---
UPDATE: AT 2100, PT SWITCHED FROM PRESSURE SUPPORT TO ACVC 16/450/8.0/35% AND PROPOFOL STARTED SHORTLY THEREAFTER. TUBE POSITION NOTED AND IN AGREEMENT WITH PAST DOCUMENTATION. PT FAMILY LEFT ROOM AT 2029.
[2025-01-24] VITALS (39 sets, daily range): BP systolic 77–121; BP diastolic 43–91
[2025-01-24 04:16] LABS: BASOPHILS ABSOLUTE AUTO 0.06 K/mm3 (0.00-0.23); BASOPHILS PERCENT AUTO 1 % (0-2); EOSINOPHILS ABSOLUTE AUTO 0.39 K/mm3 (0.00-0.68); EOSINOPHILS PERCENT AUTO 5 % (0-6); Hematocrit 27.7 % (37.0-53.0); Hemoglobin 7.3 g/dL (13.5-17.5); IMMATURE GRAN ABSOLUTE AUTO 0.04 K/mm3 (0.00-0.10); IMMATURE GRAN PERCENT AUTO 1 % (0-1); LYMPHOCYTES ABSOLUTE AUTO 1.62 K/mm3 (0.84-5.20); LYMPHOCYTES PERCENT AUTO 19 % (21-46); MONOCYTES ABSOLUTE AUTO 0.73 K/mm3 (0.16-1.47); MONOCYTES PERCENT AUTO 8 % (4-13); Mean Corpuscular HGB Conc 26.4 g/dL (31.5-36.5); Mean Corpuscular Volume 81 fL (80-100); NEUTROPHILS ABSOLUTE AUTO 5.88 K/mm3 (1.96-9.15); NEUTROPHILS PERCENT AUTO 67 % (41-73); NRBC ABSOLUTE 0.04 K/mm3 (0.00-0.02); NRBC Auto 0.5 /100 WBC (0.0-0.2); Platelet Count 229 K/mm3 (150-400); RDW Coefficient Variation 19.5 % (11.7-14.2); RDW Standard Deviation 57.1 fL (35.1-46.3)
[2025-01-24 04:40] LABS: Alanine Aminotransfer (ALT/SGP 184.0 U/L (12-78); Albumin, Blood 2.1 g/dL (3.4-5.0); Albumin/Globulin Ratio 0.5 (0.8-1.8); Anion Gap 9.0 mmol/L (3-11); Aspartate Aminotrans (AST/SGOT 160.0 U/L (12-37); Bilirubin, Direct 1.3 mg/dL (0.0-0.3); Bilirubin, Indirect 0.5 mg/dL (0.1-0.7); Bilirubin, Total 1.8 mg/dL (0.1-1.0); Blood Urea Nitrogen 18.0 mg/dL (8-24); CO2, Blood 32.0 mmol/L (21-32); Calcium, Blood 6.8 mg/dL (8.5-10.1); Chloride, Blood 103.0 mmol/L (98-108); Creatinine, Blood 0.66 mg/dL (0.60-1.20); Globulin, Blood 4.3 g/dL (2.2-4.0); Glucose, Blood 98.0 mg/dL (70-99); Magnesium, Blood 2.0 mg/dL (1.6-2.4); Phosphorus, Blood 3.4 mg/dL (2.5-4.9); Potassium, Blood 3.8 mmol/L (3.5-5.5); Sodium, Blood 140.0 mmol/L (136-145); Total Protein, Blood 6.4 g/dL (6.4-8.2)
--- NOTE | 2025-01-24 05:53 | NUR ---
SHIFT SUMMARY PT LYING IN BED IN RESTRAINTS ON VENTILATOR AND PROPOFOL AT 30. VENT SETTINGS ACVC 16/450/8.0/35% LUNGS ARE CLEAR.PT IN NO APPARENT DISTRESS. PT TEMP 99.0 F VIA CORE AND 97.8 F VIA TEMP PROBE. PT PAIN TREATED WITH REPOSITIONING AND PAIN MEDS PRN. SINUS RHYTHM IN THE 60-70'S WITH STABLE BP. NO CHEST PAIN. ETT IS 7.5 AND 23.0CM AT NARES. SMALL SECRETIONS ON DEEP SUCTIONING. SMALL ORAL SECRETIONS WELL. PLAN IS TO SWITCH BACK TO PRESSURE SUPPORT WITH HOPE OF EXTUBATION TODAY, POSSIBLY. AB IS NORMOACTIVE THROUGHOUT AND DISTENDED. NO AB PAIN, N/V. NG TUBE IN PLACE WITH VITAL PROTIEN TB AT 35ML/HR WHICH IS GOAL. TOLERATING WELL. RECTAL TUBE REMOVED. BATISTA IN PLACE DRAINING ТАТЬЯНА URINE TO GRAVITY- 700 TEA COLORED WITH PINK/RED SEDIMENT. SCDS IN PLACE. RIGHT SUBCLAVIAN IV'S FLUSH BUT DO NOT DRAW AND LEFT AC PIV FLUSHES WELL. PT HAS SEVERELY SWOLLEN TESTICLES AND FORESKIN. BEDSIDE SHIFT REPORT GIVEN TO DAY RN.
--- NOTE | 2025-01-24 07:30 | NUR ---
ASSUMED CARE. REPORT RECEIVED FROM AUBREY HAINES. PT ON PROPOFOL AT 40 MICS. PT FOLLOS COMMANDS WHEN AWOKEN. PT ON AC 16, TV 450, PEEP 8, FIO2 35%. O2 SAT 98%. WILL WEAN DOWN PROPOFOL AND DO AN SBT.
--- NOTE | 2025-01-24 10:00 | NUR ---
PT ON SBT 01/26. FIO2 35%. DR. CALI AT BEDSIDE. 0 C/O PAIN. PROPOFOL OFF SINCE 829.
[2025-01-24] MEDS ORDERED: Potassium Phosphate Dibasic 30 MM in Dextrose 5% 500 ML IV STA (10:52)
--- NOTE | 2025-01-24 18:30 | NUR ---
end of shift. PT ALERTAND ORIENTED X 3. FOLLOWING ALL COMMANDS. PROOFOL WEANED OFF AT 0800 AND SBT STARTED AT 0900. PT REMAINS ON SBL PS 10/. FIO2 35%. BED BUT IN CHAIR POSITION TO EXPAND LUNGS FOR 6 HOURS. PT SITTING UP WITH GLASSES CHANGING CHANELS AND WATCHING TV.PT GOVEN LASIX X 2 AND >3500 OF UNINE DRAINED. PT INCONTINENT OF COLTEN X 4 AND CHG BATH GIVEN WITH MULTIPLE LINEN CHANGES. PT TOLERATED WELL AND ASSISTED WITH TURNING.FAMILY AT BEDSIDE FOR 6 HOURS.k= AND SODIUM PHOS REPLACED.TF AT 35CC.
--- NOTE | 2025-01-24 19:13 | NUR ---
ASSUMPTION OF CARE CARE OF PT ASSUMED FOLLOWING BEDSIDE SHIFT REPORT FROM DAY RN. PT LYING IN BED IN RESTRAINTS ON PRESSURE SUPPORT SINCE 0900. PT IN NO APPARENT DISTRESS. PT TEMP 99.1 F. PT ADMITS TO PAIN IN ABDOMEN (CRAMPING TYPE PAIN) AND THROAT- WILL TREAT. SINUS RHYTHM IN THE 70'S WITH STABLE BP. NO CHEST PAIN. ETT IS 7.5 AND 23.0CM AT NARES. SMALL SECRETIONS ON DEEP SUCTIONING. MODERATE ORAL SECRETIONS WELL. OVERALL, SECRETIONS ARE THINNING. NO SOB. PT WAS PRESCRIBED THREE DOSES OF LASIX; ONE LEFT TO BE ADMINISTERED. PLAN IS TO SWITCH TO ACVC AGAIN TONIGHT WITH SETTINGS AT 16/450/8.0/35% FOR THE EVENING AND TO RESTART PROPOFOL IF NEEDED. CLAMP CARRIER OPERATOR WOULD LIKE TO SEE LESS FLUID AROUND LUNGS WHEN EXTUBATION TAKES PLACE. AB IS HYPERACTIVE THROUGHOUT AND DISTENDED. AB IS MARKED AT LINE OR ERYTHEMA THAT HAS BEEN PRESENT SINCE ADMISSION BUT IS DECREASING IN SIZE AND FIRMNESS. NO N/V. NG TUBE IN PLACE AT 68CM WITH VITAL PROTIEN TB AT 35ML/HR WHICH IS GOAL. TOLERATING WELL. PT HAD 4 LARGE BM'S DURING DAY SHIFT; PT RESISTANT TO REPLACEMENT OF RECTAL TUBE. BATISTA IN PLACE DRAINING ТАТЬЯНА URINE TO GRAVITY. SCDS IN PLACE. RIGHT SUBCLAVIAN IV'S FLUSH AND DRAW AND LEFT AC PIV FLUSHES WELL. PT WOULD LIKE GLASSES OFF BEFORE BEDTIME. WILL REVIEW AND CONTINUE PLAN OF CARE.
[2025-01-25] VITALS (30 sets, daily range): BP systolic 88–138; BP diastolic 58–89
[2025-01-25 03:24] LABS: Hematocrit 27.8 % (37.0-53.0); Hemoglobin 7.5 g/dL (13.5-17.5); Mean Corpuscular HGB Conc 27.0 g/dL (31.5-36.5); Mean Corpuscular Volume 80 fL (80-100); NRBC ABSOLUTE 0.00 K/mm3 (0.00-0.02); NRBC Auto 0.0 /100 WBC (0.0-0.2); Platelet Count 226 K/mm3 (150-400); RDW Coefficient Variation 19.4 % (11.7-14.2); RDW Standard Deviation 55.8 fL (35.1-46.3)
[2025-01-25 03:42] LABS: Alanine Aminotransfer (ALT/SGP 131.0 U/L (12-78); Albumin, Blood 2.2 g/dL (3.4-5.0); Albumin/Globulin Ratio 0.5 (0.8-1.8); Anion Gap 8.0 mmol/L (3-11); Aspartate Aminotrans (AST/SGOT 86.0 U/L (12-37); Bilirubin, Total 1.6 mg/dL (0.1-1.0); Blood Urea Nitrogen 21.0 mg/dL (8-24); CO2, Blood 37.0 mmol/L (21-32); Calcium, Blood 6.6 mg/dL (8.5-10.1); Chloride, Blood 97.0 mmol/L (98-108); Creatinine, Blood 0.76 mg/dL (0.60-1.20); Globulin, Blood 4.3 g/dL (2.2-4.0); Glucose, Blood 114.0 mg/dL (70-99); Magnesium, Blood 1.8 mg/dL (1.6-2.4); Potassium, Blood 3.0 mmol/L (3.5-5.5); Sodium, Blood 139.0 mmol/L (136-145); Total Protein, Blood 6.5 g/dL (6.4-8.2)
--- NOTE | 2025-01-25 06:46 | NUR ---
SHIFT SUMMARY PT LYING IN BED IN RESTRAINTS ON VENTILATOR AND PROPOFOL AT 40. VENT SETTINGS ACVC 16/450/8.0/35% LUNGS ARE CLEAR BUT QUITE DIMINISHED, ESPECIALLY IN RIGHT .PT IN NO APPARENT DISTRESS. PT TEMP 97.4 F VIA CORE. PT PAIN TREATED WITH REPOSITIONING AND PAIN MEDS PRN, WHICH WAS ALSO USED SEDATION ADJUNCT. SINUS RHYTHM IN THE 60-70'S WITH STABLE BP. NO CHEST PAIN. ETT IS 7.5 AND 25.0CM AT NARES. SMALL SECRETIONS ON DEEP SUCTIONING. MED THIN ORAL SECRETIONS WELL. PLAN IS TO SWITCH BACK TO PRESSURE SUPPORT WITH HOPE OF EXTUBATION TODAY, POSSIBLY. AB IS NORMOACTIVE THROUGHOUT AND DISTENDED. NO AB PAIN, N/V. NG TUBE IN PLACE WITH VITAL PROTIEN TB AT 35ML/HR WHICH IS GOAL. TOLERATING WELL. 2 LIQUID BROWN LARGE BMS DURING SHIFT. AB HAS MARKED AREA OF ERYTHEMA WHICH HAS DECREASED IN SIZE AND WARMTH SINCE ADMISSION. STABLE FOR SHIFT. BATISTA IN PLACE DRAINING URINE TO GRAVITY- 4L YELLOW. SCDS IN PLACE. RIGHT SUBCLAVIAN IV'S FLUSH AND DRAW POSITIONALLY AND LEFT PIV FLUSHES WELL. BEDSIDE SHIFT REPORT GIVEN TO DAY RN.
--- NOTE | 2025-01-25 10:34 | NUR ---
SUMMARY OF MORNING: RECEIVED REPORT FROM AUBREY AT BEDSIDE, PT WAS ON PROPOFOL 40MCG/KG AT THE TIME. HE WAS ABLE TO RESPOND TO QUESTIONS AND FOLLOW COMMANDS. VENT SETTINGS WERE AC/VC. HE WAS COUGHING WITH CLEAR RETURN. COMMUNICATING WELL PROPOFOL TURNED DOWN TO OFF, HE WAS TRANSITIONED TO SPONTANEOUS. HE TOLERATED THIS WELL AND ORDERED LIBERATION. PT WAS PREPARED AND EDUCATED, EXTUBATION AT 1014. PT TO NC @ 4L WITH GOOD SATURATION >97%, TITRATED DOWN TO 2L FOLLOWING GOOD COUGH AND PT USING YANKAUER SUCTION TO CLEAR ORAL SECRETIONS. DOES C/O FEELING FULL IN THE STOMACH AT THIS TIME. NO OTHER COMPLAINTS.
--- NOTE | 2025-01-25 12:10 | NUR ---
PALLIATIVE CARE NOTE: MET WITH PT IN THE ROOM. PT IS EXTUBATED, HE IS AWAKE AND ABLE TO DISCUSS CONCERNS, HOWEVER HE IS NOT AWARE OF WHY HE IS IN HOSPITAL. PT IS WORRIED BECAUSE HE HAS GAINED A LOT OF WEIGHT RECENTLY AND IS WONDERING WHY HE IS IN HOSPITAL. HE STATES "NO ONE HAS TOLD ME ANYTHING". DUE TO CONCERN PT WAS RECENTLY EXTUBATED AND PT NOT ABLE TO RECALL CONVERSATIONS THAT LIKELY OCCURED DURING EXTUBATION, ADVISED PT I WOULD REVIEW HIS MEDICAL RECORD FURTHER SO WE CAN DISCUSS CONCERNS. WILL WAIT UNTIL TOMORROW TO VISIT WITH PT AGAIN IN HOPES HIS MENTATION IS IMPROVED AND HE HAS HAD OPPORTUNITY TO SPEAK TO HOPSITALIST/OIL WELL SHOOTER.
--- NOTE | 2025-01-25 15:16 | NUR ---
SRAVAN CONTINUES TO DO WELL POST EXTUBATION. HE IS TAKING IN FLUIDS AND ADVANCING TOLERATED. HE HAS NOT HAD ANY DIFFICULTY SWALLOWING, AND DAUGHTER AT THE BEDSIDE. RETURNED TO 1L NC AFTER BRIEF EPISODE OF DROP TO LOW 80s WITH INCREASE IN FLOW TO 2L. UPDATED FAMILY TO PLAN OF CARE.
--- NOTE | 2025-01-25 18:20 | NUR ---
SRAVAN HAS BEEN UP IN THE RECLINER, HE HAS BEEN TO THE BS, HE HAD A LARGE LIQUID STOOL. HE CONTINUES TO COMPLAIN OF LOW ABDOMINAL PAIN, IMPROVED AFTER USING THE COMMODE. HE HAS BEEN ABLE TO IMPROVE HIS STRENGTH IN TRANSITIONING OVER THE LAST COUPLE OF HOURS WHILE MOVING FROM JUST SITTING ON THE EDGE OF THE BED TO PIVOTING TO THE RECLINER WITH WALKER, GAIT BELT AND 3 PERSON ASSIST TO LAST TRANSFER FROM [facility] TO RECLINER JUST WALKER AND SBA. SON IN ROOM WITH HIM, TAKING IN SOME OF HIS DINNER TRAY, DRINKING CLEAR SODA. NO FURTHER COMPLAINTS AT THIS TIME.
--- NOTE | 2025-01-25 20:00 | NUR ---
ASSUMPTION OF CARE CARE OF PT ASSUMED FOLLOWING BEDSIDE SHIFT REPORT FROM DAY RN. PT SITTING UP IN CHAIR IN NO APPARENT DISTRESS, WITH SON IN ROOM. PT AFEBRILE. PAIN IS AN ISSUE WITH ABDOMEN (SHARP, MIDDLE TO LEFT MID TO UPPER) AND LEFT MANDIBULAR REGION BEING THE BIGGEST CURRENT OFFENDERS. AFTER SEVERAL DAYS OF 50 MCG FENTANYL PUSHES AND PROPOFOL SEDATION, PT HAS BEEN SWITCHED TO Q 6HR 5 MG OYCODONE. THERE IS A CHANCE THIS MAY NOT BE SUFFICIENT; WILL MONITOR AND ADDRESS AT THAT TIME. PT IN SINUS RHYTHM RATE OF 73 WITH STABLE BP AND NO CHEST PAIN/PRESSURE. PT ON 1L HFNC WITH SAT > 92% SOB ON EXERTION STILL PRESENT, BUT NOT AT REST. LUNGS CLEAR AND DIMINISHED. PT EXTUBATED AROUND 1100. PT WILL NEED ENCOURAGEMENT TO USE INCENTIVE SPIROMETER AND TO MOVE IN GENERAL. PT HAD LARGE BM DURING ASSESSMENT; PT WEAK BUT OVERALL STEADY ON FEET. 1 TO 2 SBA IS PLANNED FOR THIS SHIFT. BOWEL SOUNDS HYPOACTIVE AND DIFFICULT TO APPRECIATE DUE TO SEVERELY DISTENDED ABDOMEN DUE TO ASCITES. DIET IS BEING ADVANCED TOLERATED. BATISTA IS IN PLACE AND PT IS HESITANT TO HAVE IT REMOVED. I LEARNED LATER THAT PT DID NOT WANT TO EXPERIENCE THE PAIN INVOLVED. AFTER EXPLAINING THAT IT IS GENERALLY A MILD PAIN EXPERIENCE, HE AGREED TO REMOVE IN THE MORNING. URINE IS ТАТЬЯНА/CLEAR. RIGHT SUBCLAVIAN IN PLACE BUT ALL PORTS DO NOT DRAW BACK BLOOD WITH EASE. LEFT AC PIV IN PLACE AND SALINE LOCKED. WILL REVIEW AND CONTINUE PLAN OF CARE.
--- NOTE | 2025-01-25 23:00 | NUR ---
UPDATE: PROVIDER CALLED ABOUT SEVERE PAIN IN LEFT MANDIBLE CAUSING PT TO NOT SLEEP; ORDER PLACED FOR 25 MCG OF FENTANYL Q 4HR PRN; FIRST DOSE GIVEN WHICH DECREASED PAIN FROM 9 TO 6. PT SAYS THAT MULTIPLE SOURCES OF PAIN ARE SOME OF THE REASONS THAT HE CONSUMES ALCOHOL ON A REGULAR BASIS. WILL CONTINUE TO MONITOR AND TREAT WITH MEDS AND NON PHARM METHODS.
[2025-01-26] VITALS (10 sets, daily range): BP systolic 104–158; BP diastolic 71–99
[2025-01-26] MEDS ORDERED: FentaNYL Citrate 50 MCG/ML 2 ML Injection IV PRN (00:35)
[2025-01-26 04:34] LABS: Hematocrit 29.9 % (37.0-53.0); Hemoglobin 8.0 g/dL (13.5-17.5); Mean Corpuscular HGB Conc 26.8 g/dL (31.5-36.5); Mean Corpuscular Volume 81 fL (80-100); NRBC ABSOLUTE 0.00 K/mm3 (0.00-0.02); NRBC Auto 0.0 /100 WBC (0.0-0.2); Platelet Count 271 K/mm3 (150-400); RDW Coefficient Variation 19.1 % (11.7-14.2); RDW Standard Deviation 55.3 fL (35.1-46.3)
[2025-01-26 04:52] LABS: Anion Gap 7.0 mmol/L (3-11); Blood Urea Nitrogen 16.0 mg/dL (8-24); CO2, Blood 35.0 mmol/L (21-32); Calcium, Blood 7.0 mg/dL (8.5-10.1); Chloride, Blood 96.0 mmol/L (98-108); Creatinine, Blood 0.64 mg/dL (0.60-1.20); Glucose, Blood 109.0 mg/dL (70-99); Potassium, Blood 3.4 mmol/L (3.5-5.5); Sodium, Blood 135.0 mmol/L (136-145)
--- NOTE | 2025-01-26 05:56 | NUR ---
SHIFT SUMMARY PT LYING IN BED TRYING TO SLEEP, ALERT AND ORIENTED WHEN AWOKEN TO SOUND, AND IN NO APPARENT DISTRESS. PT DID NOT SLEEP MORE THAN 30 MIN AND I WILL RELAY THIS INFO TO DAY RN SO THAT PT MAY GET SOMETHING FOR SLEEP TONIGHT- MELATONIN HAS NOT WORKED IN THE PAST. PT T MAX WAS 99.3 AT START OF SHIFT AND WAS 97.6 WHEN TEMP BATISTA REMOVED AT 0545. PAIN CONTROL WAS AN ISSUE WITH OXYCODONE 5MG Q 6 AND FENTANYL 25 MCG Q 4 PRN, WHICH WAS ADDED AROUND MIDNIGHT. AREAS OF PAIN INCLUDE LEFT MANDIBLE AND ABDOMEN, BUT INCLUDE OTHER AREAS SUCH BOTH KNEES WHICH WERE REPLACED TWO YEARS AGO. PT STAYED IN SINUS RHYTHM ALL SHIFT AND BP WAS STABLE WITH MAP WELL OVER 65. NO CHEST PAIN/PRESSURE. O2 SAT REMAINED ABOVE 90% ON 1.5 L NC AND AVERAGED 94%. NO SOB AT REST. SOME WITH EXERTION. LUNG SOUNDS DIMINISHED THROUGHOUT. PT COACHED ON INCENTIVE SPIROMETER AND THE REHAB USEFULNESS OF DEEP BREATHS AND MOBILITY. PT HAD ONE LARGE BM DURING SHIFT. AB REMAINS SEVERELY DISTENDED WITH APPARENT ASCITES. BS ACTIVE THROUGHOUT. BATISTA WAS REMOVED AT 0545 AND PT COACHED ON BLADDER TRAINING. TEEPEE PLACED AROUND SCROTUM/SHAFT AT PT REQUEST, IN CASE HE URINATED WHILE SLEEPING. 1400ML OUTPUT ALL SHIFT. SCROTUM AND FORESKIN REMAIN SWOLLEN THOUGH MUCH LESS THAN PREVIOUS TWO EVENINGS. RIGHT SUBCLAVIAN IN PLACE THOUGH MAY BE ABLE TO BE REMOVED TODAY. LEFT AC SALINE LOCKED. MUCH TIME WAS SPENT TALKINGTO PT ABOUT ALCHOHOL TREATMENT AND HELPFUL HEALTH IMPACTS. BEDSIDE SHIFT REPORT GIVEN TO DAY RN
--- NOTE | 2025-01-26 14:22 | NUR ---
REPORT CALLED TO OLIVA HAINES, PT PENDING ADMISSION TO ROOM 334.
--- NOTE | 2025-01-26 15:00 | NUR ---
PATIENT TRANSFERRED FROM ICU 10 TO ROOM 334, REPORT RECEIVED FROM YANCY ALFONSO. PATIENT A/OX4, TRANSFERRED WITH 1PA FROM W/C TO BED. ORIENTED TO ROOM AND USE OF CALL LIGHT, DISCUSSED SAFETY AND FALL PREVENTION. LUNGS CLEAR/DIM THROUGHOUT, SATS GREATER THAN 90% ON 2LO2. REDNESS TO ABDOMEN IMPROVING PER REPORT. PATIENT DENIES ANY NEEDS AT THIS TIME.
[2025-01-26] MEDS ORDERED: NS 250 ML IV PRN (16:25)
[2025-01-26] MEDS ORDERED: Enoxaparin 40 MG/0.4 ML SYR SC SCH (21:00)
[2025-01-27 04:49] VITALS: BP 145/86
--- NOTE | 2025-01-27 05:24 | NUR ---
SHIFT SUMMARY: PT AOX4, 1PA/ SBA WITH FWW TO THE BATHROOM. DOES NEED SOME ASSISTANCE WITH ADLS BUT STATES TO BE FEELING MUCH BETTER. SATTING WELL ON 1L O2 COULD LIKELY BE WEENED OFF. COMPLAINTS OF SOME ITCHING, RESTLESSNESS, AND PAIN. MEDICATED PER EMR. PT TOLERATING MEDICATIONS WELL. ABLE TO VOID AND HAD SEVERAL BOWEL MOVEMENTS. PT IN BED RESTING, BED IN LOWEST POSITION, CALL LIGHT IN REACH. CONTINUING CARE.
[2025-01-27 05:55] LABS: Hematocrit 30.9 % (37.0-53.0); Hemoglobin 8.0 g/dL (13.5-17.5); Mean Corpuscular HGB Conc 25.9 g/dL (31.5-36.5); Mean Corpuscular Volume 85 fL (80-100); NRBC ABSOLUTE 0.00 K/mm3 (0.00-0.02); NRBC Auto 0.0 /100 WBC (0.0-0.2); Platelet Count 319 K/mm3 (150-400); RDW Coefficient Variation 19.5 % (11.7-14.2); RDW Standard Deviation 58.2 fL (35.1-46.3)
[2025-01-27 06:42] LABS: Albumin, Blood 2.7 g/dL (3.4-5.0); Anion Gap 6 mmol/L (3-11); Blood Urea Nitrogen 8 mg/dL (8-24); CO2, Blood 31 mmol/L (21-32); Calcium, Blood 7.5 mg/dL (8.5-10.1); Chloride, Blood 97 mmol/L (98-108); Creatinine, Blood 0.58 mg/dL (0.60-1.20); Glucose, Blood 121 mg/dL (70-99); Magnesium, Blood 1.8 mg/dL (1.6-2.4); Phosphorus, Blood 2.6 mg/dL (2.5-4.9); Potassium, Blood 3.3 mmol/L (3.5-5.5); Sodium, Blood 131 mmol/L (136-145)
[2025-01-27] MEDS ORDERED: Cholecalciferol 1000 Unit Tablet (=25MCG) PO SCH (09:00)
[2025-01-27] MEDS ORDERED: Multivitamins 1 Tab PO SCH (09:00)
[2025-01-27 15:47] VITALS: BP 155/89
[2025-01-27 19:25] VITALS: BP 153/94
--- NOTE | 2025-01-27 19:26 | NUR ---
END OF SHIFT SUMMARY: A&Ox4. PLEASANT AND COOPERATIVE WITH CARE. CALLS APPROPRIATELY AND IS ABLE TO ADVOCATE NEEDS EFFECTIVELY. VSS. BREATHING EVEN AND UNLABORED c 1-2LPM/NC AT REST; DYSPNIC c EXERTION. CONTINENT OF BOWEL AND BLADDER; LBM TODAY. TOLERATING REGULAR DIET. AMBULATES c SBA c FWW. MEDS WHOLE c FLUIDS. NO CHANGES T/O SHIFT. ANTICIPATE DC TOMORROW. BED IN LOWEST POSITION, CALL LIGHT WITHIN REACH, ALL NEEDS MET. REPORT TO ONCOMING NURSE.
[2025-01-28 03:33] VITALS: BP 157/103
[2025-01-28 06:12] LABS: Hematocrit 31.9 % (37.0-53.0); Hemoglobin 8.2 g/dL (13.5-17.5); Mean Corpuscular HGB Conc 25.7 g/dL (31.5-36.5); Mean Corpuscular Volume 84 fL (80-100); NRBC ABSOLUTE 0.00 K/mm3 (0.00-0.02); NRBC Auto 0.0 /100 WBC (0.0-0.2); Platelet Count 374 K/mm3 (150-400); RDW Coefficient Variation 19.8 % (11.7-14.2); RDW Standard Deviation 56.2 fL (35.1-46.3)
--- NOTE | 2025-01-28 06:17 | NUR ---
SHIFT SUMMARY: PT AOX4, CALLS APPROPRIATELY, ABLE TO MAKE NEEDS KNOWN. STILL SATTING WELL ON 1L O2. ABLE TO AMBULATE TO THE BATHROOM SBA, AND USE URINAL IND. PT TOLERATING MEDICATIONS WELL. WISHES TO GO HOME. TALKATIVE. NO ACUTE OVERNIGHT EVENTS. PT IN BED RESTING, BED IN LOWEST POSITION, CALL LIGHT IN REACH. CONTINUING CARE.
[2025-01-28 06:45] LABS: Albumin, Blood 2.8 g/dL (3.4-5.0); Anion Gap 5 mmol/L (3-11); Blood Urea Nitrogen 7 mg/dL (8-24); CO2, Blood 31 mmol/L (21-32); Calcium, Blood 8.3 mg/dL (8.5-10.1); Chloride, Blood 98 mmol/L (98-108); Creatinine, Blood 0.58 mg/dL (0.60-1.20); Glucose, Blood 113 mg/dL (70-99); Magnesium, Blood 2.1 mg/dL (1.6-2.4); Phosphorus, Blood 2.5 mg/dL (2.5-4.9); Potassium, Blood 3.7 mmol/L (3.5-5.5); Sodium, Blood 130 mmol/L (136-145)
[2025-01-28 07:18] VITALS: BP 144/79
--- NOTE | 2025-01-28 11:33 | NUR ---
SPOKE WITH DR IZAGUIRRE REGARDING PT HAVING OXYGEN SATS OF 88-92% AFTER EXERTION. PLAN WILL BE TO DISCHARGE PATIENT TODAY
[2025-01-28] MEDS ORDERED: AMOCLA875 PO (12:33)
--- NOTE | 2025-01-28 13:15 | NUR ---
SHIFT SUMMARY AND DISCHARGE PATIENT ALERT AND ORIENTED. PATIENT ON RA. PATIENT [id number] AFTER ACTIVITY. PATIENT EDUCATED ON USE OF IS AND FLUTTER. DEEP BREATHING AND COUGHING EXERCISE EDUCATION ALSO GIVEN. PATIENT STATES THAT HE HAS TROUBLE WITH ANXIETY AND PANIC ATTACKS AT TIMES. EDUCATED PATIENT ON SQUARE BREATHING. DISCUSSED WITH PATIENT THE IMPORTANCE OF STOPPING DRINKING. PATIENT STATES THAT HE WILL PROBABLY ONLY DRINK ONE OR TWO NOW. ENCOURAGED PATIENT TO STOP DRINKING ALL TOGETHER. DISCHARGE INSTRUCTIONS REVIEWED WITH PATIENT. BELONGINGS SENT HOME WITH PATIENT. IV DC'D PRIOR TO DISCHARGE. PATIENT TAKEN OUT VIA WHEELCHAIR.
== END 2025-01-28 13:45 | disposition home or self-care (01) | DRG 871 ==
LOC: ER 15:03 → ICUE 18:59 → MEDS 01-26 14:40
PROVIDERS: Emergency Medicine; Internal Medicine; Internal Medicine Critical Care Medicine; Nurse Practitioner Acute Care; Student in an Organized Health Care Education/Training Program; ADMIT Internal Medicine
PROC: 0BH17EZ Insertion of Endotracheal Airway into Trachea, Via Natural or Artificial Opening (ICD-10-PCS; principal; 2025-01-20)
PROC: 5A09357 Assistance with Respiratory Ventilation, Less than 24 Consecutive Hours, Continuous Positive Airway Pressure (ICD-10-PCS; 2025-01-20)
PROC: 0DH67UZ Insertion of Feeding Device into Stomach, Via Natural or Artificial Opening (ICD-10-PCS; 2025-01-20)
PROC: 3E0G76Z Introduction of Nutritional Substance into Upper GI, Via Natural or Artificial Opening (ICD-10-PCS; 2025-01-20)
PROC: 5A1945Z Respiratory Ventilation, 24-96 Consecutive Hours (ICD-10-PCS; 2025-01-20)
PROC: 0T9B70Z Drainage of Bladder with Drainage Device, Via Natural or Artificial Opening (ICD-10-PCS; 2025-01-20)
PROC: 3E033XZ Introduction of Vasopressor into Peripheral Vein, Percutaneous Approach (ICD-10-PCS; 2025-01-20)
PROC: 02HV33Z Insertion of Infusion Device into Superior Vena Cava, Percutaneous Approach (ICD-10-PCS; 2025-01-21)
PROC: B548ZZA Ultrasonography of Superior Vena Cava, Guidance (ICD-10-PCS; 2025-01-21)
PROC: 3E03329 Introduction of Other Anti-infective into Peripheral Vein, Percutaneous Approach (ICD-10-PCS; 2025-01-21)
PROC: 4A033R1 Measurement of Arterial Saturation, Peripheral, Percutaneous Approach (ICD-10-PCS; 2025-01-22)
DX: A41.9 Sepsis, unspecified organism (principal); G92.8 Other toxic encephalopathy; R65.21 Severe sepsis with septic shock; J96.01 Acute respiratory failure with hypoxia; J96.02 Acute respiratory failure with hypercapnia; J18.9 Pneumonia, unspecified organism; I50.31 Acute diastolic (congestive) heart failure; N39.0 Urinary tract infection, site not specified; N17.9 Acute kidney failure, unspecified; Z68.43 Body mass index [BMI] 50.0-59.9, adult; L03.311 Cellulitis of abdominal wall; E87.20 Acidosis, unspecified; J44.0 Chronic obstructive pulmonary disease with (acute) lower respiratory infection; Z96.653 Presence of artificial knee joint, bilateral; I45.10 Unspecified right bundle-branch block; F10.20 Alcohol dependence, uncomplicated; E66.01 Morbid (severe) obesity due to excess calories; K70.31 Alcoholic cirrhosis of liver with ascites; I27.20 Pulmonary hypertension, unspecified; D50.9 Iron deficiency anemia, unspecified; K76.82 Hepatic encephalopathy; J45.20 Mild intermittent asthma, uncomplicated; M17.0 Bilateral primary osteoarthritis of knee; R74.01 Elevation of levels of liver transaminase levels; R68.0 Hypothermia, not associated with low environmental temperature; F11.90 Opioid use, unspecified, uncomplicated; R14.0 Abdominal distension (gaseous); E87.6 Hypokalemia; E83.42 Hypomagnesemia; E83.39 Other disorders of phosphorus metabolism; Z87.19 Personal history of other diseases of the digestive system; Z99.89 Dependence on other enabling machines and devices; Z79.82 Long term (current) use of aspirin; Z79.899 Other long term (current) drug therapy; Z28.21 Immunization not carried out because of patient refusal
CPT/HCPCS: 31500; 36415; 36556; 36600; 70450; 71045; 74176; 76705; 80047; 80048; 80053; 80069; 80076; 80320; 81001; 82140; 82550; 82607; 82728; 82746; 82803; 82947; 83540; 83550; 83605; 83735; 83880; 84100; 84132; 84145; 84439; 84443; 84484; 85014; 85025; 85027; 85610; 87040; 87086; 87428-QW; 93005; 93010; 94002; 94003; 94660; 97112; 97161; 97530; 99285-25; A9270; C1751; C8929; G0480; J0132; J0696; J1650; J1938; J2371; J2470; J2543; J2704; J3010; J3411; J3475; J3480; J7030; J7050; J7060; Q9957